=== PATIENT | female | born 1995 | race Hispanic/Latino ===

== ENCOUNTER → 2019-10-18 | Outpatient (CLI) | payer OTHER | END | disposition home or self-care (01) | LOC: RAH 11:04 | PROVIDERS: ATTEND Obstetrics & Gynecology | DX: Z36.0 Encounter for antenatal screening for chromosomal anomalies (principal); Z3A.01 Less than 8 weeks gestation of pregnancy | CPT/HCPCS: 76805 ==

== ENCOUNTER → 2019-10-24 | Outpatient (CLI) | payer OTHER | END | disposition home or self-care (01) | LOC: RAH 07:45 | PROVIDERS: ATTEND Obstetrics & Gynecology | DX: Z36.89 Encounter for other specified antenatal screening (principal); Z3A.01 Less than 8 weeks gestation of pregnancy; N83.202 Unspecified ovarian cyst, left side | CPT/HCPCS: 76801 ==

== ENCOUNTER → 2019-11-05 | Outpatient (CLI) | payer OTHER ==
[2019-11-05 08:56] LABS: BASOPHILS % (AUTO) 0.4 % (0.0-5.0); EOSINOPHILS % (AUTO) 0.8 % (0.0-8.0); LYMPHOCYTES % (AUTO) 23.6 % (21.0-51.0); MEAN CORPUSCULAR HEMOGLOBIN 29.5 pg (27.0-33.0); MEAN CORPUSCULAR VOLUME 86.9 fL (79-99); MONOCYTES % (AUTO) 5.5 % (3.0-13.0); NEUTROPHILS % (AUTO) 69.6 % (40.0-77.0); PLATELET COUNT (AUTO) 285 K/uL (130-400); RED CELL DISTRIBUTION WIDTH 11.6 % (11.0-15.5); WHITE BLOOD COUNT (AUTO) 9.1 K/uL (4.8-10.8)
[2019-11-05 09:26] LABS: THYROID STIMULATING HORMONE 0.56 uIU/mL (0.36-3.74)
[2019-11-05 10:07] LABS: HEMATOCRIT 35.7 % (36-48); RED BLOOD CELL COUNT(AUTO) 4.18 MIL/uL (4.00-5.50)
== END | disposition home or self-care (01) ==
LOC: LAB 08:16
PROVIDERS: ATTEND Obstetrics & Gynecology
DX: Z11.59 Encounter for screening for other viral diseases (principal)
CPT/HCPCS: 36415; 82947; 83036; 84443; 85025; 86592; 86762; 86850; 86870; 86900; 86901; 87088

== ENCOUNTER → 2019-12-27 | Outpatient (CLI) | payer OTHER | END | disposition home or self-care (01) | LOC: LAB 16:20 | PROVIDERS: ATTEND Obstetrics & Gynecology | DX: Z13.79 Encounter for other screening for genetic and chromosomal anomalies (principal) | CPT/HCPCS: 36415; 82105; 82677; 84702; 86336 ==

== ENCOUNTER → 2020-01-08 | Outpatient (CLI) | payer OTHER | END | disposition home or self-care (01) | LOC: RAH 09:02 | PROVIDERS: ATTEND Obstetrics & Gynecology | DX: Z34.92 Encounter for supervision of normal pregnancy, unspecified, second trimester (principal); Z3A.19 19 weeks gestation of pregnancy | CPT/HCPCS: 76805 ==

== ENCOUNTER → 2020-02-27 | Outpatient (CLI) | payer OTHER ==
[2020-02-27 10:04] LABS: BASOPHILS % (AUTO) 0.3 % (0.0-5.0); EOSINOPHILS % (AUTO) 0.6 % (0.0-8.0); HEMATOCRIT 38.7 % (36-48); LYMPHOCYTES % (AUTO) 16.5 % (21.0-51.0); MEAN CORPUSCULAR HEMOGLOBIN 29.1 pg (27.0-33.0); MEAN CORPUSCULAR HGB CONC 32.3 g/dL (32.0-36.0); MONOCYTES % (AUTO) 4.5 % (3.0-13.0); NEUTROPHILS % (AUTO) 77.4 % (40.0-77.0); PLATELET COUNT (AUTO) 214 K/uL (130-400); RED CELL DISTRIBUTION WIDTH 12.5 % (11.0-15.5); WHITE BLOOD COUNT (AUTO) 12.8 K/uL (4.8-10.8)
== END | disposition home or self-care (01) ==
LOC: LAB 09:40
PROVIDERS: ATTEND Obstetrics & Gynecology
DX: R73.02 Impaired glucose tolerance (oral) (principal)
CPT/HCPCS: 36415; 82947; 82948; 82950; 85025

== ENCOUNTER → 2020-04-03 | Outpatient (CLI) | payer OTHER | END | disposition home or self-care (01) | LOC: RAH 12:00 | PROVIDERS: ATTEND Obstetrics & Gynecology | DX: Z34.02 Encounter for supervision of normal first pregnancy, second trimester (principal); Z3A.14 14 weeks gestation of pregnancy | CPT/HCPCS: 76805 ==

== ENCOUNTER 2020-04-13 12:46 | Observation (INO) | payer OTHER ==
[~2020-04-13] VITALS: Ht 162.6 cm; Wt 83.0 kg
[2020-04-13] MEDS ORDERED: MEPERIDINE-PF 50 MG/ML SYG IVP PRN (14:00)
[2020-04-13] MEDS ORDERED: PROMETHAZINE HCL 25 MG/ML 1ML AMPULE IM PRN (14:00)
[2020-04-13] MEDS ORDERED: ACETAMINOPHEN EXTRA STRENGTH 500 MG TABLET PO SCH (14:45)
[2020-04-13] MEDS: LACTATED RINGERS 1000ML 1,000 ML IV PRN ×3 (16:59→22:04)
[2020-04-13] MEDS ORDERED: TAMSULOSIN HCL 0.4 MG CAP.ER.24H PO SCH (18:00)
[2020-04-13] MEDS ORDERED: CALCIUM CARBON 500MG CHEW TAB PO PRN (19:15)
[2020-04-15] MEDS ORDERED: VALA500T42 PO (04:46)
[2020-04-15] MEDS ORDERED: DOCU-116 PO (04:46)
[2020-04-15] MEDS ORDERED: PREN-66 PO (04:46)
== END 2020-04-14 08:00 | disposition home or self-care (01) ==
LOC: LDH 13:29
PROVIDERS: ADMIT Obstetrics & Gynecology; ATTEND Obstetrics & Gynecology
DX: O26.833 Pregnancy related renal disease, third trimester (principal); N20.0 Calculus of kidney; Z3A.31 31 weeks gestation of pregnancy
CPT/HCPCS: 59025; G0378 ×20; J7120 ×5; 96360; 96361

== ENCOUNTER 2020-04-14 20:49 | Inpatient (IN) | payer OTHER ==
[~2020-04-14] VITALS: Ht 162.6 cm; Wt 81.6 kg
[2020-04-14 21:24] VITALS: BP 134/78
[2020-04-14] MEDS ORDERED: MEPERIDINE-PF 50 MG/ML SYG ONE (22:14)
[2020-04-14] MEDS: PROMETHAZINE HCL 25 MG/ML 1ML AMPULE IM PRN (22:30)
[2020-04-14] MEDS: LACTATED RINGERS 1000ML 1,000 ML IV SCH (22:32)
[2020-04-14 22:39] LABS: APPEARANCE,URINE Clear (CLEAR); BILIRUBIN,URINE Negative (NEGATIVE); COLOR,URINE Yellow (YELLOW); GLUCOSE, URINE (UA) Negative (NEGATIVE); KETONES,URINE Negative (NEGATIVE); LEUKOCYTE ESTERASE ,URINE Moderate (NEGATIVE); NITRATE,URINE Negative (NEGATIVE); OCCULT BLOOD,URINE Small (NEGATIVE); PH,URINE 7.5 (5.0-8.0); PROTEIN,URINE Negative (NEGATIVE)
[2020-04-14 23:02] LABS: BACTERIA,URINE Few /HPF (None Seen); MUCUS,URINE Moderate LPF (None Seen); SQUAMOUS EPITHELIAL CELL,UR Moderate /HPF (0-2)
[2020-04-15] MEDS ORDERED: CEFTRIAXONE SODIUM 1 GM IVP SCH
--- NOTE | 2020-04-15 00:25 | NUR ---
External Monitor; FHT [id number] with moderate variability, no deceleration with good Acceleration radha every 6 minutes apart. Lake arrington RN reviewed the strip advice to call Domo Choe CNM.
[2020-04-15] MEDS ORDERED: CEFTRIAXONE SODIUM 1 GM ONE (00:47)
[2020-04-15] MEDS ORDERED: TERBUTALINE SULFATE VIAL 1MG/ML SQ PRN (02:45)
[2020-04-15] MEDS ORDERED: TERBUTALINE SULFATE VIAL 1MG/ML SQ ONE (02:46)
--- NOTE | 2020-04-15 04:00 | NUR ---
Report received from MITCHELL Schuster. Patient came in via wheelchair wheeled by MITCHELL Schuster accompanied by . She has an IV of LR infusing well regulated at 150 ml/hour. She and oriented to the room, call light given. Plan of care discussed , both verbalizes understanding.
[2020-04-15 04:15] VITALS: BP 118/62
[2020-04-15] MEDS ORDERED: PREN-66 PO (04:46)
[2020-04-15] MEDS ORDERED: VALA500T42 PO (04:46)
[2020-04-15] MEDS ORDERED: DOCU-116 PO (04:46)
[2020-04-15] MEDS: LACTATED RINGERS 1000ML 1,000 ML IV SCH ×3 (06:19→19:05)
[2020-04-15 07:23] VITALS: BP 115/72
[2020-04-15] MEDS: PROMETHAZINE HCL 25 MG/ML 1ML AMPULE IM PRN ×3 (08:04→19:06)
[2020-04-15] MEDS: MEPERIDINE-PF 50 MG/ML SYG IVP PRN ×3 (08:05→19:06)
[2020-04-15] MEDS ORDERED: TAMSULOSIN HCL 0.4 MG CAP.ER.24H PO SCH (09:00)
[2020-04-15 11:19] VITALS: BP 117/62
[2020-04-15] MEDS ORDERED: MAGNESIUM CITRATE 296 ML SOLUTION PO SCH (13:45)
[2020-04-15] MEDS ORDERED: BISACODYL 10 MG SUPP.RECT RC PRN (13:45)
--- NOTE | 2020-04-15 14:40 | NUR ---
PT REPORTS HAVING DIFFICULTY HAVING A BM. ORDERS RECEIVED FROM DR. MILLS FOR DULCOLAX SUPPOSITORY AND MAG CITRATE.
--- NOTE | 2020-04-15 15:15 | NUR ---
RESULTS GIVEN TO DR. MILLS OF KUB. SHOWED NO STONES AT THIS TIME. ORDERS RECEIVED FOR UROLOGY CONSULT IN AM.
--- NOTE | 2020-04-15 15:30 | NUR ---
DR. MILLS NOTIFIED OF RESULTS FOR RENAL US, WHICH SHOWED NO STONES, BUT MILD HYDRONEPHROSIS TO LEFT KIDNEY. NEW ORDERS RECEIVED TO DO A KUB IF OK WITH PT.
--- NOTE | 2020-04-15 15:35 | NUR ---
DISCUSSED WITH PT OF DR. MILLS WANTING TO PROCEED WITH KUB. INFORMATION GIVEN TO PT AND PT IN AGREEMENT TO HAVE KUB DONE.
[2020-04-15 16:11] VITALS: BP 114/56
--- NOTE | 2020-04-15 16:55 | NUR ---
DULCOLAX SUPPOSITORY AND MAG CITRATE GIVEN AT THIS TIME.
[2020-04-15 19:54] VITALS: BP 126/63
--- NOTE | 2020-04-15 20:35 | NUR ---
External monitor applied per patient request; Patient complained of pressure on her abdomen and pain n her left side radiating to the back. Informed that her Demerol is not due until 2300. She claimed she doesn't need the medication this time just to see if she's radha. Patient informed of the signs of pre-term labor. She denies any blood or watery discharges. She was informed that I need to inform the Charges Nurse Lake Barrios RN and get the external monitor.
--- NOTE | 2020-04-15 21:25 | NUR ---
Communication: Domo Choe CNM called informed that patient complained of pressure on her abdomen was placed in the monitor per request and noted contractions every 6 minutes . Heart Tone is baseline 150. Received orders to give Terbutaline 0.25 mg Subcutaneous now if she needs another dose transfer patient to Labor and Delivery. Jazmyne Barrios RN charge claimed, " she will give the medicine."
[2020-04-15] MEDS ORDERED: TERBUTALINE SULFATE VIAL 1MG/ML SQ SCH (21:30)
--- NOTE | 2020-04-15 21:30 | NUR ---
Pt requesting to remove efm/toco, explaining due to contractions noted and plan for adm of brethine monitoring is required to assess response and contraction pattern. Pt tearful; informing pt has right to refuse monitoring, pt voices understanding & denies refusing efm/toco monitoring, agrees to continue monitoring, states "can you just loosen the belts because my left side pain is starting again". Efm/toco adjusted & belts loosened, abd remains soft & non tender to palpation, no guarding or rigidity noted.
--- NOTE | 2020-04-15 21:35 | NUR ---
Explaining terbutaline/brethine subcutaneous as ordered by Carolyn Choe CNM for uterine contractions noted on monitor, pt confirming feeling "abd pressure that comes and goes"; Informing of med desired effects & possible common side effects; pt & spouse voice understanding & agree to med administration. Brethine 0.25mg administered subcutaneous. Addendum: 04/15/20 at 2150 by CRISTIAN ROGERS RN RN Amended: Links added.
--- NOTE | 2020-04-15 21:45 | NUR ---
Pt tearful, verbalizing concern that "baby might come "; explaining precautions of monitoring due to pt feeling abd pressure; contractions noted on monitor & cnm informed. Teaching on s/s labor of lower abd cramping, lower back pain, pelvic pressure, and/or decreased movement, increase vaginal discharge or vaginal bleeding. Pt denies s/s, states "i just feel the pain in my left back side; continues tearful. Reinforcing teaching on precautions to prevent labor. Pt voices understanding. Addendum: 04/15/20 at 2156 by CRISTIAN ROGERS RN RN Amended: Links added.
--- NOTE | 2020-04-15 21:50 | NUR ---
Explaining will continue to monitor for Brethine effect & plan to discontinue monitoring 30 minutes after med adm. Informing of plan to transfer to L&D as per orders if contractions and discomfort continue. Pt & spouse voice understanding & agree to plan.
--- NOTE | 2020-04-15 22:11 | NUR ---
Rare contraction noted in 30 minutes; pt denies abd tightening since application of efm/toco at 2049. Explaining plan to discontinue efm/toco & instructing to report abd pressure, lower abd cramping, lower pelvic pressure, increased vaginal discharge or any bleeding, decreased movement; pt & spouse voice understanding & agrees to teaching. Reassuring fhr tracing normal, abd soft & non tender to palpation; no contractions palpated. Addendum: 04/15/20 at 8674 by CRISTIAN ROGERS RN RN Amended: Links added.
[2020-04-16 00:06] VITALS: BP 129/65
[2020-04-16] MEDS: PROMETHAZINE HCL 25 MG/ML 1ML AMPULE IM PRN ×3 (01:07→01:40)
--- NOTE | 2020-04-16 01:07 | NUR ---
Demerol 50 mg and Phenergan not given was wasted. DEMEROL ROUTE IS IV PUSH AND Phenergan IM WAS ACCIDENTALLY MIXED TOGETHER. Lake Barrios RN charges was informed. medication wasted.
[2020-04-16] MEDS: MEPERIDINE-PF 50 MG/ML SYG IVP PRN ×3 (01:08→01:34)
[2020-04-16] MEDS: LACTATED RINGERS 1000ML 1,000 ML IV SCH ×2 (01:48→20:00)
[2020-04-16 04:18] VITALS: BP 141/75
--- NOTE | 2020-04-16 07:10 | NUR ---
ROUNDING DR. BLANCA MILLS AT BEDSIDE TO ASSESS AND TALK TO PT. VAG EXAM DONE BY DR. MILLS. PT DILATED 1-2 CMS.
[2020-04-16 07:26] VITALS: BP 121/73
[2020-04-16] MEDS ORDERED: MAGNESIUM SULFATE 1,000 ML IV PRN (07:26)
[2020-04-16] MEDS ORDERED: PHARMACY COMMUNICATION MISC SCH (07:30)
[2020-04-16] MEDS ORDERED: CALCIUM GLUCONATE 1 GM/10 ML VIAL IV PRN (07:30)
[2020-04-16] MEDS ORDERED: MAGNESIUM 4GM PREMIX 100ML 100 ML IV SCH (07:30)
--- NOTE | 2020-04-16 07:30 | NUR ---
PT TRANSFERRED TO L&D BY WHEELCHAIR. REPORT GIVEN TO MY [place] RN BY PHI JAY RN FOR CONTINUITY OF CARE.
[2020-04-16] MEDS ORDERED: MAGNESIUM SULFATE 1,000 ML IV ONE (07:37)
[2020-04-16] MEDS: AMPICILLIN 2GM+NS 100ML 100 ML IV SCH ×3 (08:33→19:59)
[2020-04-16] MEDS: CELESTONE SOLUSPAN 6 MG/ML 5ML VIAL IM SCH (08:33)
[2020-04-16 08:38] LABS: HEMATOCRIT 33.5 % (36-48); MEAN CORPUSCULAR HEMOGLOBIN 30.3 pg (27.0-33.0); MEAN CORPUSCULAR VOLUME 89.1 fL (79-99); RED BLOOD CELL COUNT(AUTO) 3.76 MIL/uL (4.00-5.50); RED CELL DISTRIBUTION WIDTH 12.6 % (11.0-15.5); WHITE BLOOD COUNT (AUTO) 13.1 K/uL (4.8-10.8)
[2020-04-16] MEDS: BISACODYL 10 MG SUPP.RECT RC SCH (16:10)
[2020-04-16] MEDS: METOCLOPRAMIDE 10 MG TABLET PO SCH (17:48)
[2020-04-16 18:20] LABS: THYROID STIMULATING HORMONE 1.5 uIU/mL (0.36-3.74)
[2020-04-16] MEDS: DOCUSATE SODIUM 100 MG CAP PO SCH (20:55)
[2020-04-17] MEDS: AMPICILLIN 2GM+NS 100ML 100 ML IV SCH ×4 (01:51→20:15)
[2020-04-17] MEDS ORDERED: MAGNESIUM HYDROXIDE 30 ML/UDCUP PO SCH (07:45)
[2020-04-17] MEDS: METOCLOPRAMIDE 10 MG TABLET PO SCH ×3 (08:30→16:53)
[2020-04-17] MEDS: CELESTONE SOLUSPAN 6 MG/ML 5ML VIAL IM SCH (08:35)
[2020-04-17] MEDS: TAMSULOSIN HCL 0.4 MG CAP.ER.24H PO SCH ×2 (09:00→09:13)
[2020-04-17] MEDS: DOCUSATE SODIUM 100 MG CAP PO SCH ×2 (09:13→20:16)
[2020-04-17 10:52] VITALS: BP 112/64
[2020-04-17 13:11] LABS: HEPATITIS Bs ANTIGEN SCREEN P Negative (Negative)
[2020-04-17] MEDS: LACTATED RINGERS 1000ML 1,000 ML IV SCH ×2 (14:01→23:41)
[2020-04-17] MEDS: BISACODYL 10 MG SUPP.RECT RC SCH (16:00)
[2020-04-17 16:09] VITALS: BP 101/60
[2020-04-17 19:24] VITALS: BP 99/60
[2020-04-17 23:41] VITALS: BP 101/54
[2020-04-18] MEDS: AMPICILLIN 2GM+NS 100ML 100 ML IV SCH ×2 (01:47→08:00)
[2020-04-18 05:05] VITALS: BP 103/56
[2020-04-18 07:56] VITALS: BP 108/59
--- NOTE | 2020-04-18 08:00 | NUR ---
AMPICILLIN HUNG AND PO MEDS GIVEN AT THIS TIME WITH REGLAN SINCE BREAKFAST WAS BROUGHT IN AT THIS TIME. PATIENT INSTRUCTED WILL PLACE ON MONITOR AT 0900.
[2020-04-18] MEDS: DOCUSATE SODIUM 100 MG CAP PO SCH (08:01)
[2020-04-18] MEDS: TAMSULOSIN HCL 0.4 MG CAP.ER.24H PO SCH (08:04)
[2020-04-18] MEDS ORDERED: PRENATAL VITAMIN RX TABLET PO SCH (09:00)
[2020-04-18] MEDS ORDERED: VALACYCLOVIR HCL 500 MG TABLET PO SCH (09:00)
--- NOTE | 2020-04-18 09:00 | NUR ---
PATIENT PLACED ON MONITOR FOR NST AND STRIP WAS REACTIVE WITH BASELINE OF 130 AND ACCELS TO 150. NO CONTRACTIONS NOTED AND PATIENT VERBALIZED NO PAIN. MOVEMENT NOTED.
[2020-04-18] MEDS: LACTATED RINGERS 1000ML 1,000 ML IV SCH (09:41)
--- NOTE | 2020-04-18 11:25 | NUR ---
DR. MILLS CALLED AND PATIENT STATUS GIVEN AT THIS TIME. ORDER RECEIVED FOR DISCHARGE AND FOLLOW UP APPOINTMENT IN 2 WEEKS. PATIENT DENIES PAIN AND FEELING NO CONTRACTIONS.
[2020-04-18 11:28] VITALS: BP 106/58
[2020-04-18] MEDS: METOCLOPRAMIDE 10 MG TABLET PO SCH ×2 (11:46→12:51)
[2020-04-18] MEDS ORDERED: DIPH,PERTUSS(ACELL),TET VAC/PF 0.5 ML VIAL IM SCH (12:25)
--- NOTE | 2020-04-18 12:45 | NUR ---
PATIENT WAS TAKEN VIA W/C TO FAMILY VEHICLE AND WAS DISCHARGED TO SPOUSE IN STABLE CONDITION. DENIES PAIN AND DENIES ANY FURTHER CONTRACTIONS. TDAP GIVEN REQUESTED BEFORE DISCHARGE.
== END 2020-04-18 12:45 | disposition home or self-care (01) | DRG 831 ==
LOC: LDH 20:49 → OBSVTOIN 20:49 → WSH 04-15 04:01 → LDH 04-16 07:30 → WSH 04-17 10:34
PROVIDERS: ADMIT Obstetrics & Gynecology; ATTEND Obstetrics & Gynecology
PROC: 3E0234Z Introduction of Serum, Toxoid and Vaccine into Muscle, Percutaneous Approach (ICD-10-PCS; principal; 2020-04-14)
DX: O21.9 Vomiting of pregnancy, unspecified (principal); O60.03 Preterm labor without delivery, third trimester; N13.30 Unspecified hydronephrosis; O99.89 Other specified diseases and conditions complicating pregnancy, childbirth and the puerperium; Z3A.31 31 weeks gestation of pregnancy; Z23 Encounter for immunization
CPT/HCPCS: 36415; 59025; 74018; 76770; 76805; 81001; 84439; 84443; 85027; 86592; 86850; 86870; 86900; 86901; 87088; 87340; 90715; 96360; 96361; 96372; A4314; G0378; J0290; J0696; J0702; J2175; J2550; J3105; J3475; J7120

== ENCOUNTER → 2020-05-13 | Outpatient (CLI) | payer OTHER | END | disposition home or self-care (01) | LOC: LAB 15:03 | PROVIDERS: ATTEND Obstetrics & Gynecology | DX: O09.893 Supervision of other high risk pregnancies, third trimester (principal); Z3A.00 Weeks of gestation of pregnancy not specified ==

== ENCOUNTER 2020-05-20 14:40 | Inpatient (IN) | payer OTHER ==
[~2020-05-20] VITALS: Ht 162.6 cm; Wt 88.0 kg
[~2020-05-20 14:40] MED LIST: DOCU-116 PO; PREN-66 PO; VALA500T42 PO
[2020-05-20] MEDS: LACTATED RINGERS 1000ML 1,000 ML IV PRN ×2 (15:30→20:59)
[2020-05-20 15:49] LABS: HEMATOCRIT 37.7 % (36-48); MEAN CORPUSCULAR HGB CONC 34.2 g/dL (32.0-36.0); MEAN CORPUSCULAR VOLUME 87.7 fL (79-99); RED BLOOD CELL COUNT(AUTO) 4.3 MIL/uL (4.00-5.50); RED CELL DISTRIBUTION WIDTH 12.8 % (11.0-15.5); WHITE BLOOD COUNT (AUTO) 14.6 K/uL (4.8-10.8)
[2020-05-20 15:53] LABS: APPEARANCE,URINE Clear (CLEAR); BILIRUBIN,URINE Negative (NEGATIVE); COLOR,URINE Yellow (YELLOW); GLUCOSE, URINE (UA) Negative (NEGATIVE); KETONES,URINE Negative (NEGATIVE); LEUKOCYTE ESTERASE ,URINE Negative (NEGATIVE); NITRATE,URINE Negative (NEGATIVE); OCCULT BLOOD,URINE Negative (NEGATIVE); PH,URINE 5.5 (5.0-8.0); PROTEIN,URINE Negative (NEGATIVE); UROBILINOGEN,URINE 0.2 mg/dL (0.2-1.0)
[2020-05-20] MEDS ORDERED: BUTORPHANOL TARTRATE 2 MG/ML IVP PRN (17:30)
[2020-05-20] MEDS ORDERED: NALOXONE HCL 0.4 MG/1 ML ML IV PRN (17:30)
[2020-05-20] MEDS ORDERED: EPHEDRINE SULFATE 50 MG/ML AMPULE IVP PRN (17:30)
[2020-05-20] MEDS ORDERED: LACTATED RINGERS 500 ML 500 ML IV PRN (17:30)
[2020-05-20 19:45] VITALS: BP 101/54
[2020-05-21] MEDS ORDERED: OXYTOCIN-LR 20 UNITS/1000 ML 1,000 ML IV ONE ×2 (04:53→12:30)
[2020-05-21] MEDS: LACTATED RINGERS 1000ML 1,000 ML IV PRN (04:55)
[2020-05-21] MEDS ORDERED: OXYTOCIN 10 USP UNITS/ML 20 UNIT in LACTATED RINGERS 1000ML 1,000 ML IV SCH (05:00)
[2020-05-21] MEDS ORDERED: WITCH HAZEL 1 PAD TP PRN (12:15)
[2020-05-21] MEDS ORDERED: ACETAMINOPHEN-CODEINE 300/30MG TAB PO PRN (12:15)
[2020-05-21] MEDS ORDERED: LANOLIN 30GM OINTMENT TP PRN (12:15)
[2020-05-21] MEDS ORDERED: MEASLES/MUMPS/RUBELLA VACCINE, LIVE 0.5 ML/VIAL SQ PRN (12:15)
[2020-05-21] MEDS ORDERED: ACETAMINOPHEN 325 MG TAB PO PRN (12:15)
[2020-05-21] MEDS ORDERED: DIPH,PERTUSS(ACELL),TET VAC/PF 0.5 ML VIAL IM PRN (12:15)
[2020-05-21] MEDS ORDERED: BENZOCAINE/LANOLIN/ALOE VERA 60 ML AEROSOL TP PRN (12:15)
[2020-05-21 14:00] VITALS: BP 122/75
[2020-05-21] MEDS: IBUPROFEN 600 MG TABLET PO PRN ×2 (14:17→21:13)
[2020-05-21 15:58] VITALS: BP 128/74
[2020-05-21 19:48] VITALS: BP 121/61
[2020-05-21] MEDS: DOCUSATE SODIUM 100 MG CAP PO SCH (21:13)
[2020-05-21 23:15] VITALS: BP 98/53
[2020-05-22 03:32] VITALS: BP 94/51
[2020-05-22 07:47] VITALS: BP 100/59
[2020-05-22] MEDS: IBUPROFEN 600 MG TABLET PO PRN ×3 (08:00→21:23)
[2020-05-22 09:12] LABS: HEPATITIS Bs ANTIGEN SCREEN P Negative (Negative)
[2020-05-22] MEDS: DOCUSATE SODIUM 100 MG CAP PO SCH ×2 (09:30→21:19)
[2020-05-22 11:42] VITALS: BP 124/72
[2020-05-22 16:29] VITALS: BP 112/66
[2020-05-22 19:50] VITALS: BP 116/77
[2020-05-22 23:50] VITALS: BP 106/65
[2020-05-23 04:10] VITALS: BP 115/67
[2020-05-23 07:45] VITALS: BP 120/81
--- NOTE | 2020-05-23 08:00 | NUR ---
ATTEMPTED TO ASSESS PATIENT AND PATIENT HAD ALREADY GONE TO NURSERY TO VISIT WITH BABY.
--- NOTE | 2020-05-23 08:15 | NUR ---
PATIENT ASSESSED AND VERBALIZED HAVING MILD DISCOMFORT AND CRAMPING. PAIN MEDICATION REVIEWED AND PLAN OF CARE DISCUSSED WITH PATIENT. STATES NOT SURE IF HER BABY WILL BE GOING HOME BUT DR. MONTIEL WILL NOTIFY HER ONCE BABY IS ASSESSED.
[2020-05-23] MEDS: DOCUSATE SODIUM 100 MG CAP PO SCH (09:39)
[2020-05-23] MEDS: IBUPROFEN 600 MG TABLET PO PRN (09:41)
[2020-05-23 11:15] VITALS: BP 123/73
--- NOTE | 2020-05-23 13:30 | NUR ---
ATTEMPTED TO DISCHARGE PATIENT AND INDICATED NOT WANTING DISCHARGE INSTRUCTIONS UNTIL SHE TALKS TO THE TREAD TUBER MACHINE OPERATOR. DENISE, TREAD TUBER MACHINE OPERATOR WAS MADE AWARE AND INDICATED THAT SHE WOULD BE GOING TO ROOM AND TALK TO PATIENT.
--- NOTE | 2020-05-23 14:00 | NUR ---
DISCHARGE INSTRUCTIONS GIVEN TO PATIENT AND SCRIPT FOR PAIN MANAGEMENT. VERBALIZED UNDERSTANDING DOSAGE AND FREQUENCY OF MEDICATIONS. PATIENT IS STABLE AND UPSET BECAUSE HER BABY WILL BE STAYING WHILE BEING WEANED OFF OXYGEN. DENIES PAIN AT THIS TIME.
--- NOTE | 2020-05-23 14:54 | NUR ---
REPORT GIVEN TO HERBERT ARMAS AND PATIENT CARE TRANSFERED AT THIS TIME.
[2020-05-23 16:56] VITALS: BP 123/85
--- NOTE | 2020-05-23 18:45 | NUR ---
PATIENT LEFT UNIT VIA WHEELCHAIR WITH BELONGINGS IN HAND ACCOMPANIED BY SIGNIFICANT OTHER. BABY TO STAY FOR OBSERVATION IN NURSERY
== END 2020-05-23 18:45 | disposition home or self-care (01) | DRG 807 ==
LOC: LDH 14:40 → OBSVTOIN 15:10 → WSH 05-21 13:55
PROVIDERS: ADMIT Obstetrics & Gynecology; ATTEND Obstetrics & Gynecology
PROC: 10E0XZZ Delivery of Products of Conception, External Approach (ICD-10-PCS; principal; 2020-05-21)
PROC: 0HQ9XZZ Repair Perineum Skin, External Approach (ICD-10-PCS; 2020-05-21)
PROC: 10907ZC Drainage of Amniotic Fluid, Therapeutic from Products of Conception, Via Natural or Artificial Opening (ICD-10-PCS; 2020-05-21)
PROC: 3E0R3BZ Introduction of Anesthetic Agent into Spinal Canal, Percutaneous Approach (ICD-10-PCS; 2020-05-21)
PROC: 00HU33Z Insertion of Infusion Device into Spinal Canal, Percutaneous Approach (ICD-10-PCS; 2020-05-21)
PROC: 3E0334Z Introduction of Serum, Toxoid and Vaccine into Peripheral Vein, Percutaneous Approach (ICD-10-PCS; 2020-05-21)
PROC: 3E0234Z Introduction of Serum, Toxoid and Vaccine into Muscle, Percutaneous Approach (ICD-10-PCS; 2020-05-21)
PROC: 3E0134Z Introduction of Serum, Toxoid and Vaccine into Subcutaneous Tissue, Percutaneous Approach (ICD-10-PCS; 2020-05-21)
DX: O26.893 Other specified pregnancy related conditions, third trimester (principal); Z37.0 Single live birth; Z3A.37 37 weeks gestation of pregnancy; Z23 Encounter for immunization; O70.0 First degree perineal laceration during delivery; Z67.41 Type O blood, Rh negative
CPT/HCPCS: 36415; 81003; 83033; 85027; 86592; 86701; 86850; 86900; 86901; 87340; 87390; A4314; A4606; G0378; J2590; J2791; J7120

== ENCOUNTER → 2021-01-30 | Outpatient (CLI) | payer OTHER ==
[2021-01-30 15:05] LABS: BASOPHILS % (AUTO) 0.5 % (0.0-5.0); EOSINOPHILS % (AUTO) 0.7 % (0.0-8.0); HEMATOCRIT 42.2 % (36-48); LYMPHOCYTES % (AUTO) 24.1 % (21.0-51.0); MEAN CORPUSCULAR HEMOGLOBIN 28.5 pg (27.0-33.0); MEAN CORPUSCULAR HGB CONC 32.9 g/dL (32.0-36.0); MEAN CORPUSCULAR VOLUME 86.5 fL (79-99); MONOCYTES % (AUTO) 5.9 % (3.0-13.0); NEUTROPHILS % (AUTO) 68.6 % (40.0-77.0); PLATELET COUNT (AUTO) 324 K/uL (130-400); RED BLOOD CELL COUNT(AUTO) 4.88 MIL/uL (4.00-5.50); RED CELL DISTRIBUTION WIDTH 12.1 % (11.0-15.5); WHITE BLOOD COUNT (AUTO) 9.7 K/uL (4.8-10.8)
[2021-01-31 09:39] LABS: RAPID PLASMA REAGIN NONREACTIVE (NONREACTIVE)
[2021-02-01 14:09] LABS: HEPATITIS Bs ANTIGEN SCREEN P Negative (Negative)
== END | disposition home or self-care (01) ==
LOC: RAH 14:01
PROVIDERS: ATTEND Specialist
DX: Z34.80 Encounter for supervision of other normal pregnancy, unspecified trimester (principal)
CPT/HCPCS: 36415; 76801; 85025; 86592; 86701; 86850; 86900; 86901; 87340; 87390

== ENCOUNTER → 2021-04-06 | Outpatient (CLI) | payer OTHER | END | disposition home or self-care (01) | LOC: LAB 10:59 | PROVIDERS: ATTEND Specialist | DX: Z34.80 Encounter for supervision of other normal pregnancy, unspecified trimester (principal); Z3A.00 Weeks of gestation of pregnancy not specified | CPT/HCPCS: 36415; 82105; 82677; 84702; 86336 ==

== ENCOUNTER → 2021-04-24 | Outpatient (CLI) | payer OTHER | END | disposition home or self-care (01) | LOC: RAH 10:42 | PROVIDERS: ATTEND Specialist | DX: Z34.82 Encounter for supervision of other normal pregnancy, second trimester (principal); Z3A.14 14 weeks gestation of pregnancy | CPT/HCPCS: 76805 ==

== ENCOUNTER → 2021-05-06 | Outpatient (CLI) | payer OTHER ==
[2021-05-06 12:37] LABS: BILIRUBIN,URINE Negative (NEGATIVE); COLOR,URINE Yellow (YELLOW); GLUCOSE, URINE (UA) Negative (NEGATIVE); KETONES,URINE Negative (NEGATIVE); LEUKOCYTE ESTERASE ,URINE Moderate (NEGATIVE); NITRATE,URINE Negative (NEGATIVE); OCCULT BLOOD,URINE Negative (NEGATIVE); PH,URINE 6.5 (5.0-8.0); PROTEIN,URINE Negative (NEGATIVE)
[2021-05-06 12:42] LABS: APPEARANCE,URINE CLEAR (CLEAR)
[2021-05-06 12:45] LABS: AMPHET/METH SCREEN,URINE NEGATIVE (NEGATIVE); BARBITURATE SCREEN, URINE NEGATIVE (NEGATIVE); BENZODIAZEPINES SCREEN,URINE NEGATIVE (NEGATIVE); CANNABINOID SCREEN,URINE NEGATIVE (NEGATIVE); COCAINE SCREEN,URINE NEGATIVE (NEGATIVE); OPIATE SCREEN,URINE NEGATIVE (NEGATIVE); PHENCYCLIDINE SCREEN,URINE NEGATIVE (NEGATIVE)
[2021-05-06 13:09] LABS: BACTERIA,URINE Moderate /HPF (None Seen); RBC,URINE None Seen /HPF (0-1)
[2021-05-06 13:10] LABS: MUCUS,URINE Moderate LPF (None Seen)
== END | disposition home or self-care (01) ==
LOC: LAB 11:11
PROVIDERS: ATTEND Specialist
DX: Z34.81 Encounter for supervision of other normal pregnancy, first trimester (principal)
CPT/HCPCS: 36415; 80305; 81001; 86762; 87088

== ENCOUNTER → 2021-06-15 | Outpatient (CLI) | payer OTHER ==
[2021-06-16 07:36] LABS: RAPID PLASMA REAGIN NONREACTIVE (NONREACTIVE)
== END | disposition home or self-care (01) ==
LOC: LAB 11:00
PROVIDERS: ATTEND Specialist
DX: Z11.3 Encounter for screening for infections with a predominantly sexual mode of transmission (principal)
CPT/HCPCS: 36415; 82950; 86592; 86701; 86850; 86900; 86901; 87390

== ENCOUNTER 2022-02-09 23:37 | Inpatient (IN) | payer OTHER ==
[~2022-02-09] VITALS: Ht 162.6 cm; Wt 83.0 kg
[2022-02-10] MEDS ORDERED: ONDANSETRON 4MG INJ ONE (00:39)
[2022-02-10] MEDS ORDERED: MORPHINE 2 MG SYG ONE (00:39)
[2022-02-10] MEDS ORDERED: KETOROLAC 15MG/ML VIAL (15MG/ML) ONE (00:39)
[2022-02-10] MEDS ORDERED: ONDANSETRON 4MG INJ IVP ONE (01:00)
[2022-02-10] MEDS ORDERED: KETOROLAC 15MG/ML VIAL (15MG/ML) IV ONE (01:00)
[2022-02-10] MEDS ORDERED: MORPHINE 4 MG SYG IV ONE ×2 (01:00→02:30)
[2022-02-10] MEDS ORDERED: 0.9%NACL 1000ML 1,000 ML IV ONE (01:00)
[2022-02-10 01:16] LABS: APPEARANCE,URINE Clear (CLEAR); BILIRUBIN,URINE Negative (NEGATIVE); COLOR,URINE Yellow (YELLOW); GLUCOSE, URINE (UA) Negative (NEGATIVE); KETONES,URINE Trace mg/dL (NEGATIVE); LEUKOCYTE ESTERASE ,URINE Trace (NEGATIVE); NITRATE,URINE Negative (NEGATIVE); OCCULT BLOOD,URINE Moderate (NEGATIVE); PH,URINE 5.5 (5.0-8.0); PROTEIN,URINE Negative (NEGATIVE); UROBILINOGEN,URINE 0.2 mg/dL (0.2-1.0)
[2022-02-10 02:00] LABS: BACTERIA,URINE None Seen /HPF (None Seen); MUCUS,URINE Rare LPF (None Seen); SQUAMOUS EPITHELIAL CELL,UR Rare /HPF (0-2)
[2022-02-10] MEDS ORDERED: ACETAMINOPHEN 500 MG TABLET PO ONE (02:30)
[2022-02-10] MEDS ORDERED: ACETAMINOPHEN 325 MG TAB PO PRN (03:00)
[2022-02-10] MEDS ORDERED: TAMSULOSIN HCL 0.4 MG CAP.ER.24H PO SCH (03:00)
[2022-02-10] MEDS ORDERED: KETOROLAC 30MG VIAL (30MG/ML) IV PRN (03:00)
[2022-02-10] MEDS ORDERED: MORPHINE 2 MG SYG IV PRN (03:00)
[2022-02-10] MEDS ORDERED: MORPHINE 4 MG SYG IV PRN (03:00)
[2022-02-10] MEDS: CEFTRIAXONE 1G VIAL IV SCH (03:21)
[2022-02-10] MEDS: 0.9%NACL 1000ML 1,000 ML IV SCH ×2 (03:21→20:52)
[2022-02-10 05:25] VITALS: BP 110/54
[2022-02-10 05:47] LABS: BASOPHILS % (AUTO) 0.3 % (0.0-5.0); EOSINOPHILS % (AUTO) 0.3 % (0.0-8.0); HEMATOCRIT 38.8 % (36-48); LYMPHOCYTES % (AUTO) 10.6 % (21.0-51.0); MEAN CORPUSCULAR HEMOGLOBIN 29.3 pg (27.0-33.0); MEAN CORPUSCULAR HGB CONC 33.2 g/dL (32.0-36.0); MEAN CORPUSCULAR VOLUME 88.2 fL (79-99); MONOCYTES % (AUTO) 5.1 % (3.0-13.0); NEUTROPHILS % (AUTO) 83.4 % (40.0-77.0); PLATELET COUNT (AUTO) 326 K/uL (130-400); RED CELL DISTRIBUTION WIDTH 12.2 % (11.0-15.5); WHITE BLOOD COUNT (AUTO) 15.8 K/uL (4.8-10.8)
[2022-02-10 06:01] LABS: ALBUMIN 3.9 g/dL (3.5-5.0); BILIRUBIN,TOTAL 0.4 mg/dL (0.2-1.0); TOTAL PROTEIN, SERUM 7.5 g/dL (6.0-8.3)
[2022-02-10 08:00] VITALS: BP 110/54
[2022-02-10] MEDS: FAMOTIDINE 20MG TAB PO SCH ×2 (09:33→20:52)
[2022-02-10] MEDS: TAMSULOSIN HCL 0.4 MG CAP.ER.24H PO SCH (09:33)
[2022-02-10] MEDS: ENOXAPARIN SODIUM 40 MG/0.4 ML SYRINGE SQ SCH (09:34)
[2022-02-10 12:00] VITALS: BP 103/56
[2022-02-10 16:00] VITALS: BP 110/61
[2022-02-10 19:43] VITALS: BP 115/63
[2022-02-10 23:52] VITALS: BP 118/71
[2022-02-11] MEDS: CEFTRIAXONE 1G VIAL IV SCH (02:58)
[2022-02-11 03:41] VITALS: BP 121/68
[2022-02-11 04:52] LABS: BASOPHILS % (AUTO) 0.6 % (0.0-5.0); EOSINOPHILS % (AUTO) 1.3 % (0.0-8.0); HEMATOCRIT 35.7 % (36-48); LYMPHOCYTES % (AUTO) 45.8 % (21.0-51.0); MEAN CORPUSCULAR HEMOGLOBIN 29.5 pg (27.0-33.0); MEAN CORPUSCULAR HGB CONC 33.3 g/dL (32.0-36.0); MEAN CORPUSCULAR VOLUME 88.4 fL (79-99); MONOCYTES % (AUTO) 6.2 % (3.0-13.0); PLATELET COUNT (AUTO) 269 K/uL (130-400); RED BLOOD CELL COUNT(AUTO) 4.04 MIL/uL (4.00-5.50); RED CELL DISTRIBUTION WIDTH 12.1 % (11.0-15.5); WHITE BLOOD COUNT (AUTO) 6.8 K/uL (4.8-10.8)
[2022-02-11 05:08] LABS: CREATININE 0.6 mg/dL (0.5-1.5); POTASSIUM 3.6 mmol/L (3.5-5.1)
[2022-02-11 08:00] VITALS: BP 106/56
[2022-02-11] MEDS: FAMOTIDINE 20MG TAB PO SCH (09:05)
[2022-02-11] MEDS: TAMSULOSIN HCL 0.4 MG CAP.ER.24H PO SCH (09:05)
[2022-02-11] MEDS: ENOXAPARIN SODIUM 40 MG/0.4 ML SYRINGE SQ SCH (09:07)
== END 2022-02-11 10:35 | disposition home or self-care (01) | DRG 694 ==
LOC: EDH 23:37 → OBSVTOIN 02-10 02:51 → EDHIP 02-10 02:51 → 3AH 02-10 03:19
PROVIDERS: ADMIT Hospitalist; ATTEND Hospitalist
DX: N20.0 Calculus of kidney (principal); Z87.442 Personal history of urinary calculi; Z82.0 Family history of epilepsy and other diseases of the nervous system; Z80.6 Family history of leukemia; Z84.89 Family history of other specified conditions
CPT/HCPCS: 36415; 80048; 80053; 81001; 81025; 85025; 96361; 96374; 96375; 96376; G0378; J0696; J1650; J1885; J2270; J2405